=== PATIENT | male | born 1990 | race African-American/Black ===

== ENCOUNTER 2019-09-25 12:25 | Emergency (ER) | payer OTHER, SELFPAY ==
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
[2019-09-25 12:44] VITALS: BP 142/86; PULSE 80; RESP 16; TEMP 36.7; O2SAT 100
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
== END 2019-09-25 15:09 | disposition home or self-care (01) ==
PROVIDERS: Emergency Provider Emergency Medicine
DX: R07.81 Pleurodynia (principal); S39.012A Strain of muscle, fascia and tendon of lower back, initial encounter; M47.816 Spondylosis without myelopathy or radiculopathy, lumbar region; J45.909 Unspecified asthma, uncomplicated; V49.50XA Passenger injured in collision with unspecified motor vehicles in traffic accident, initial encounter
CPT/HCPCS: 71045; 71101; 72131; 99284

== ENCOUNTER 2021-01-20 20:20 | Emergency (ER) | payer SELFPAY ==
[2021-01-20 20:28] VITALS: BP 128/62; PULSE 64; RESP 14; TEMP 36.7; O2SAT 98
[2021-01-20 20:57] LABS: Add Urine Microscopic? YES; Appearance Urine Cloudy (Clear); Bacteria Urine Trace /hpf; Bilirubin Urine Negative (Negative); Blood Urine Negative (Negative); Color Urine Yellow (Yellow); Glucose Urine UA Negative (Negative); Ketones Urine Negative (Negative); Leukocyte Esterase Ur 3+ LEU/UL (Negative); Mucus Urine Heavy /lpf; Nitrate Urine Negative (Negative); Protein Urine 1+ mg/dL (Negative); Specific Grav Ur 1.023 (1.001-1.035); Urobilinogen Urine Negative mg/dL (<2.0); WBC Urine >75 /hpf
[2021-01-20] MEDS: DOXYCYCLINE HYCLATE 100 MG TABLET PO (21:13)
[2021-01-20] MEDS: cefTRIAXone 1 GM VIAL 0.5 GM IM (21:14)
[2021-01-20] MEDS: LIDOCAINE HCL 1% LOCAL INJ 20 ML VIAL (21:14)
--- NOTE | 2021-01-20 21:24 | ED.GENADULT ---
HPI - General Adult General Chief complaint: Urogenital-Male Stated complaint: STD CHECK Time Seen by Provider: 01/20/21 20:31 Source: patient and RN notes reviewed Mode of arrival: ambulatory Limitations: no limitations History of Present Illness HPI narrative: This is a 24 year old male who presents for evaluation urethral discharge. Patient states he noticed burning with urination at the tip of his penis 2-3 days ago. Today he noticed purulent discharge . HE denies fever, chills, nausea, vomiting, abdominal pain, back pain or fever. He also denies penile sores or lymph nodes. His girlfriend is in ER today for an STD evaluation as well. Related Data Allergies Allergy/AdvReac Type Severity Reaction Status Date / Time No Known Allergies Allergy Verified 09/25/19 12:55 Review of Systems Review of Systems: All systems reviewed & are unremarkable except as noted in HPI and below PMFSH Past Medical History Medical History (Updated 01/21/21 @ 00:00 by Gene Aguila) History of asthma Surgical History Surgical History (Updated 01/20/21 @ 22:02 by Lesly Love MD) No pertinent past surgical history Social History Social History (Updated 09/25/19 @ 14:18 by Karen Garcia PA-C) Smoking status: Never smoker Exam Const: General: no acute distress and alert Orientation/consciousness: patient oriented x3 Eyes: EOM: EOMs intact bilaterally Resp: Effort & Inspection: normal respiratory effort and no retractions Auscultation: clear to auscultation bilaterally Cardio: Rate: regular rate Rhythm: regular rhythm Heart sounds: no murmurs GI: GI Palp: Yes Soft to palpation, No Tenderness to palpation present (GI) and No Guarding due to palpation present (GI) Auscultation: normal bowel sounds : General: Yes no CVA tenderness Penis: Yes normal penis and Yes circumcised Scrotum: scrotum normal Skin: General skin exam: normal color Rashes: no rashes Neuro: General: patient oriented x3, moves all extremities and CN's II-XI intact bilaterally Course Reevaluation(s) Reevaluation #1: I Discussed with patient plan to treated for urethritis . He understands results will not return until next week but he is being treated presumptively for STD Date: 01/20/21 Time: 22:03 Vital Signs Vital signs: Vital Signs Temperature 98.0 F 01/20/21 20:28 Pulse Rate 64 01/20/21 20:28 Respiratory Rate 14 01/20/21 20:28 Blood Pressure 128/62 01/20/21 20:28 Pulse Oximetry 98 01/20/21 20:28 Temperature 98.0 F 01/20/21 20:28 Pulse Rate 66 01/20/21 22:20 Respiratory Rate 16 01/20/21 22:20 Blood Pressure 131/70 01/20/21 22:20 Pulse Oximetry 98 01/20/21 20:28 Medical Decision Making Vital Signs Vital Signs: Vital Signs Temperature 98.0 F 01/20/21 20:28 Pulse Rate 64 01/20/21 20:28 Respiratory Rate 14 01/20/21 20:28 Blood Pressure 128/62 01/20/21 20:28 Pulse Oximetry 98 01/20/21 20:28 Temperature 98.0 F 01/20/21 20:28 Pulse Rate 66 01/20/21 22:20 Respiratory Rate 16 01/20/21 22:20 Blood Pressure 131/70 01/20/21 22:20 Pulse Oximetry 98 01/20/21 20:28 Lab Data Lab results reviewed: Yes I reviewed the patient's lab results. Labs: Lab Results 01/20/21 01/20/21 Range/Units 20:43 20:43 Urine Color Yellow (Yellow) Urine Appearance Cloudy H (Clear) Urine pH 6.0 (5.0-9.0) Ur Specific [place] 1.023 (1.001-1.035) Urine Protein 1+ H (Negative) mg/dL Urine Glucose (UA) Negative (Negative) mg/dL Urine Ketones Negative (Negative) mg/dL Ur Blood (Man) Negative (Negative) Urine Nitrate Negative (Negative) Urine Bilirubin Negative (Negative) Urine Urobilinogen Negative (<2.0) mg/dL Leukocyte Esterase Rfl 3+ H (Negative) KAVON/UL Urine RBC 11-20 H (0-2) /hpf Urine WBC >75 H /hpf Urine Bacteria Trace /hpf Urine Mucus Heavy H /lpf C.trachomatis RNA (TMA) Pending
[2021-01-20 22:20] VITALS: BP 131/70; PULSE 66; RESP 16
== END 2021-01-20 22:20 | disposition home or self-care (01) ==
PROVIDERS: Emergency Medicine Emergency Medical Services; Emergency Provider General Practice
DX: N34.2 Other urethritis (principal); J45.909 Unspecified asthma, uncomplicated
CPT/HCPCS: 81001; 87086; 87491; 87591; 96372; 99283; A9270; J0696